=== PATIENT | female | born 1990 | race Hispanic/Latino ===

== ENCOUNTER 2016-10-02 20:45 | Outpatient (CLI) | payer OTHER ==
[2016-10-02] MEDS ORDERED: NORMAL SALINE 10 ML SYRINGE FLUSH IVP PRN (21:02)
[2016-10-02 21:09] VITALS: RESP 16; TEMP 98.2
--- NOTE | 2016-10-02 21:44 | PDOC(PROG) ---
Intake - - Reason for Visit/Chief Complaint: Contractions Admitted From: Home - Estimated Due Date: 10/14/16 Gestational Age in Weeks and Days: 38 Weeks and 3 Days : 3 Para: 2 Term Births: 2 Births: 0 Number of Abortions (Spont./Elective): 0 Living Children: 2 - Labs Group B Strep: Negative Maternal - Vital Signs Last Taken Vital Signs: Vital Signs - Last Taken Temperature 98.2 F 10/02/16 21:01 Pulse Rate 92 10/02/16 21:01 Respiratory Rate 16 10/02/16 21:01 Blood Pressure 127/70 10/02/16 21:01 Pulse Ox 98 10/02/16 21:01 - Uterine Activity Uterine Contraction Monitor Mode: External Contraction Frequency(minutes): 8-2 Contraction Duration (seconds): 50-60 Uterine Contraction Pattern: Irregular Uterine Tone Measurement Phase: Resting Uterine Contraction Intensity: Mild - Cervical Exam Cervical Dilation (cm): 1-2 Cervical Effacement Percentage: 40 Station: -3 Exam Performed By: Mario Benitez RN - Vaginal Discharge Vaginal Bleeding Amount: None Vaginal Discharge Amount: None Monitoring - Uterine Activity Uterine Contraction Monitor Mode: External Contraction Frequency(minutes): 8-2 Contraction Duration (seconds): 50-60 Uterine Contraction Pattern: Irregular Uterine Tone Measurement Phase: Resting Uterine Contraction Intensity: Mild Hammer Score - Hammer Score Cervical Dilation: 1-2 cm Cervical Effacement: 40-50% Station: -3 Cervical Consistency: Moderate Cervical Position: Posterior Hammer Score Total: 3 Results - Bedside Testing Bedside Urine Ketone: Negative Bedside Urine Leukocytes Esterase: Negative Bedside Urine Nitrite: Negative Bedside Urine Occult Blood: Negative Bedside Urine Protein: Negative Bedside Specific [place]: 1.025 Assessment and Plan - Patient Problems (1) Term Status: Acute Support Text: Labor check, Irregular contractions q8-10 minutes. Cervix 1-4/40/-3. Patient walked. No change in cervix, 2 contractions in 25 mins on repeat. Precautions. F /u Monday with Provider as previously scheduled.
== END 2016-10-02 23:39 | disposition home or self-care (01) ==
LOC: OBOP 20:45
PROVIDERS: ATTEND Student in an Organized Health Care Education/Training Program
DX: O47.1 False labor at or after 37 completed weeks of gestation (principal); Z3A.38 38 weeks gestation of pregnancy
CPT/HCPCS: 59025; 81003; 99211

== ENCOUNTER 2016-10-15 17:44 | Outpatient (CLI) | payer OTHER ==
[2016-10-15] MEDS ORDERED: NORMAL SALINE 10 ML SYRINGE FLUSH IVP PRN (17:55)
[2016-10-15 18:03] VITALS: RESP 20; TEMP 97.9
--- NOTE | 2016-10-18 09:34 | PDOC(PROG) ---
Intake - - Reason for Visit/Chief Complaint: Contractions Additional Reason(s) for Visit: decreased movement Admitted From: Home - Estimated Due Date: 10/14/16 Gestational Age in Weeks and Days: 40 Weeks and 4 Days : 3 Para: 2 Term Births: 2 Births: 0 Number of Abortions (Spont./Elective): 0 Living Children: 2 - Labs Blood Type and Rh: B+ Group B Strep: Negative Hepatitis B Surface Antigen: Absent HIV: Negative Rubella Status: Immune VDRL/RPR: Absent Maternal - Vital Signs Last Taken Vital Signs: Vital Signs - Last Taken Temperature 97.9 F 10/15/16 17:55 Pulse Rate 98 10/15/16 17:55 Respiratory Rate 20 10/15/16 17:55 Blood Pressure 114/73 10/15/16 17:55 Pulse Ox 97 10/15/16 17:55 - Uterine Activity Uterine Contraction Monitor Mode: External Contraction Frequency(minutes): irritability Contraction Duration (seconds): 70 Uterine Contraction Pattern: Absent Uterine Tone Measurement Phase: Resting Uterine Contraction Intensity: Mild - Cervical Exam Cervical Dilation (cm): 1 Cervical Effacement Percentage: 75 Station: -2 Exam Performed By: Shayla Saenz RN - Vaginal Discharge Vaginal Bleeding Amount: None Monitoring - Uterine Activity Uterine Contraction Monitor Mode: External Contraction Frequency(minutes): irritability Contraction Duration (seconds): 70 Uterine Contraction Pattern: Absent Uterine Tone Measurement Phase: Resting Uterine Contraction Intensity: Mild Results - Bedside Testing Bedside Urine Ketone: Negative Bedside Urine Leukocytes Esterase: Negative Bedside Urine Nitrite: Negative Bedside Urine Occult Blood: Negative Bedside Urine Protein: Negative Bedside Specific [place]: 1.005 Assessment and Plan - Assessment / Plan Additional Assessment/Plan Details: The patient was seen Monday in labor and delivery. At that time she was 40 and one sevenths weeks. The nurse contacted me to inform me the patient went to labor and delivery for decreased movement and possible labor. In labor and delivery, the patient felt the baby move often. The patient had 1 contraction in 40 minutes. No leak of fluid and no bleeding. The patient was a with 2 prior vaginal deliveries and had spontaneous labor with both. The patient's care was in [place], [place] with a physician there. The patient continues to have plans to deliver in [place], [place] but she went to [facility] for labor and delivery care since it was closer. In labor and delivery the patient had a reactive nonstress test and only 1 contraction in 40 minutes. The nurse informed me that the patient felt her baby moving well in labor and delivery. The patient's cervix was checked and her cervix was 1 cm and posterior. Baby was in cephalic presentation per nurse. The patient was sent home with precautions. The patient was asked to contact her OB physician's office on Monday which was 36 hours after the patient was seen in labor and delivery here at [facility] to schedule appointment for this week. Again, the patient was 40-1/7 weeks when the patient presented to our labor and delivery. The patient expressed understanding. The patient understood that she could present to our labor and delivery for emergent issues at any time. The patient also expressed understanding that she would schedule an appointment to see her OB provider this week. kick counts and labor precautions were discussed with patient and the patient again confirmed that she was feeling her baby move well in our labor and delivery.
== END 2016-10-15 18:53 | disposition home or self-care (01) ==
LOC: OBOP 17:44
PROVIDERS: ATTEND Obstetrics & Gynecology
DX: O47.1 False labor at or after 37 completed weeks of gestation (principal); O36.8130 Decreased fetal movements, third trimester, not applicable or unspecified; Z3A.40 40 weeks gestation of pregnancy
CPT/HCPCS: 59025; 81003; 99211

== ENCOUNTER 2016-10-20 01:15 | Inpatient (IN) | payer OTHER ==
[2016-10-20] MEDS ORDERED: NORMAL SALINE 10 ML SYRINGE FLUSH IVP PRN ×2 (01:38→04:29)
[2016-10-20] MEDS ORDERED: Phenylephrine Inj 50 MCG in Normal Saline Flush 0.5 ML IVP PRN (01:38)
[2016-10-20] MEDS ORDERED: Metoclopramide Inj 10 MG/2 ML VIAL IV PRN (01:38)
[2016-10-20] MEDS ORDERED: BUTORPHANOL TARTRATE 2 MG/1 ML VIAL IVP PRN (01:38)
[2016-10-20] MEDS ORDERED: OXYTOCIN 10 UNIT/1 ML IM PRN (01:38)
[2016-10-20] MEDS ORDERED: diphenhydrAMINE 50 MG/1 ML VIAL IVP PRN ×2 (01:38→04:29)
[2016-10-20] MEDS ORDERED: Naloxone Inj 0.01 MG in Normal Saline Flush 1 ML IVP PRN (01:38)
[2016-10-20] MEDS ORDERED: CefOXitin Inj 2 GM in Sodium Chloride 0.9% 100 ML IV PRN (01:38)
[2016-10-20] MEDS ORDERED: Nalbuphine Inj 20 MG/ML Ampule IVP PRN ×2 (01:38→04:29)
[2016-10-20] MEDS ORDERED: fentaNYL Inj 100 MCG/2 ML VIAL IV PRN (01:38)
[2016-10-20] MEDS ORDERED: Carboprost Inj 250 MCG/ML AMP IM PRN ×2 (01:38→04:29)
[2016-10-20] MEDS ORDERED: Lidocaine 1% 10 MG/ML - 20 ML VIAL SUBCUT PRN (01:38)
[2016-10-20] MEDS ORDERED: METHYLERGONOVINE MALEATE 0.2 MG/1 ML VIAL IM PRN ×2 (01:38→04:29)
[2016-10-20] MEDS ORDERED: MISOPROSTOL 200 MCG TABLET RECTAL PRN (01:38)
[2016-10-20] MEDS ORDERED: NALOXONE 0.4 MG/1 ML VIAL IVP PRN (01:38)
[2016-10-20] MEDS ORDERED: LIDOCAINE W/ SODIUM BICARB 0.5 ML SYR SUBD PRN (01:38)
[2016-10-20] MEDS ORDERED: ONDANSETRON 4 MG/2 ML VIAL IVP PRN ×2 (01:38→04:29)
[2016-10-20] MEDS ORDERED: Famotidine Inj 20 MG in Normal Saline Flush 10 ML IVP PRN ×4 (01:38)
[2016-10-20] MEDS ORDERED: ePHEDrine Inj 5 MG in Normal Saline Flush 1 ML IVP PRN (01:38)
[2016-10-20] MEDS ORDERED: TERBUTALINE SULFATE 1 MG/1 ML SDV SUBCUT PRN (01:38)
[2016-10-20] MEDS ORDERED: CITRIC ACID/SODIUM CITRATE 30 ML CUP PO PRN (01:38)
[2016-10-20] MEDS ORDERED: CALCIUM CARBONATE 500 MG (TUMS) CHEWABLE TABLET PO PRN ×2 (01:38→04:29)
[2016-10-20 01:57] LABS: HEMATOCRIT 34.1 % (37.0-47.0); HEMOGLOBIN 11.4 g/dL (12.0-16.0); MEAN CORPUSCULAR HEMOGLOBIN 27.9 PG (27-31); MEAN CORPUSCULAR HGB CONC 33.4 g/dL (33-37); MEAN PLATELET VOLUME 10.7 FL (7.4-12.2); RDW COEFFICIENT OF VARIATION 15.3 % (11.5-14.5); RED BLOOD COUNT 4.08 10^6/uL (4.20-5.40); WHITE BLOOD COUNT 8.7 10^3/uL (4.8-10.8)
[2016-10-20] MEDS: Lactated Ringers-OB Dept 1,000 ML PRIMARY IV SCH ×2 (02:09→02:52)
[2016-10-20] MEDS ORDERED: LIDOCAINE MPF 2% - 5 ML (20 MG/1 ML) ONE (02:48)
--- NOTE | 2016-10-20 03:39 | CRNA.PROCE ---
Central Neuraxis Block Placemt - - Safety Measures: Site Verified (. Oneil, came in at 4 cm ,now 6 cm. Has not had previous epidurals for labors. Has had no parenteral opiates. Platelets) - - Type of Block: Epidural Reason for Block: Analgesia Moniters Used During Block: SPO2, NIBP Skin Prep Used: Betadine (Times 3) Draped: Yes Spinal Needle Used: 18 Hustead 80 mm (BERTRAND with Saline. Epidural space times one. Catheter threaded with a transient Right leg parasthesia.) Local Anesthetic - Enter Amount Used in Comment Field: 1.5 % Xylocaine with Epinephrine 1:200,000 (mL): Yes (4ml) Number of Centimeters Catheter Threaded: 3.5 Bioclusive Dressing Applied: Yes (Skin prep under dressings) - - Additional Details: Since she's progressing rapidly , will dose via incremental doses not infusion. Test dose-233-4 ml of 1.5% Lido with epi 1:200k. 0245-5 ml of 2% Lido MPF 0312-5 ml of 2% Lido MPF- Shes completely comfortable-and complete and ready to push at 0335. Delivered at 0350. Jennifer Navarro MS, SWING DRIVER
[2016-10-20] MEDS: Oxytocin 20 Units + LR 1,000 ML IV SCH ×2 (03:52→05:09)
--- NOTE | 2016-10-20 04:18 | OB.DEL.SUM ---
Delivery Note Delivery Summary: of a viable male , Apgars 9/10, over a small 2 degree perineal laceration from OA position. At complete dilation, amniotomy was performed with return of moderate meconium. At delivery, the was vigorous and crying after the cord was clamped and cut and the was passed of to nursery staff. Repair was made with 3-0 Vicryl Rapide in the usual manner. Epidural anesthesia was provided during her short labor. The placenta delivered within minutes and was intact, with a three vessel cord. EBL 200 ml. There were no complications. Mother and baby tolerated delivery well.
[2016-10-20] MEDS ORDERED: Methylergonovine Tab 0.2 MG TAB PO PRN (04:29)
[2016-10-20] MEDS ORDERED: ACETAMINOPHEN 325 MG TABLET PO PRN (04:29)
[2016-10-20] MEDS ORDERED: OXYTOCIN 10 UNIT/1 ML IM ONE (04:29)
[2016-10-20] MEDS ORDERED: diphenhydrAMINE 25 MG CAPSULE PO PRN (04:29)
[2016-10-20] MEDS ORDERED: HYDROcodone-APAP 5 MG -325 MG TABLET PO PRN (04:29)
[2016-10-20] MEDS ORDERED: LANOLIN HPA 40 GM TUBE TOPICAL PRN (04:29)
[2016-10-20] MEDS ORDERED: DIPH,PERTUSS,TET(ADACEL) VAC/PF 0.5 ML (Tdap) IM SCH (04:29)
[2016-10-20] MEDS ORDERED: GLYCERIN/WITCH HAZEL 1 BOX TOPICAL PRN (04:29)
[2016-10-20] MEDS ORDERED: Ondansetron ODT Tab 4 MG TAB PO PRN (04:29)
[2016-10-20] MEDS ORDERED: BENZOCAINE/MENTHOL SPRAY 56 GM BOTTLE TOPICAL PRN (04:29)
[2016-10-20] MEDS ORDERED: MISOPROSTOL 200 MCG TABLET RECTAL ONE (04:29)
[2016-10-20] MEDS ORDERED: Oxytocin 20 Units + LR 1,000 ML IV SCH (04:29)
[2016-10-20 07:43] LABS: CANNABINOID SCREEN,URINE NEGATIVE (NEG); COCAINE SCREEN NEGATIVE (NEG); METHAMPHETAMINES SCREEN,URINE NEGATIVE (NEG); TRICYCLIC ANTIDEPRESSANT,URINE NEGATIVE (NEG); URINE SAMPLE TYPE CLEAN CATCH URINE; URINE SPECIFIC GRAVITY - MAN 1.007
[2016-10-20] MEDS: IBUPROFEN 800 MG TABLET PO PRN ×2 (09:47→19:06)
[2016-10-20] MEDS: DOCUSATE 100 MG CAPSULE PO SCH ×2 (09:48→21:05)
[2016-10-20] MEDS: PHENOL/MENTHOL 14.5 MG LOZENGE PO PRN (12:24)
[2016-10-20 18:04] VITALS: TEMP 99.3
[2016-10-21] MEDS: IBUPROFEN 800 MG TABLET PO PRN (05:05)
[2016-10-21] MEDS: PHENOL/MENTHOL 14.5 MG LOZENGE PO PRN (05:06)
[2016-10-21 05:10] VITALS: RESP 16
[2016-10-21 06:26] LABS: HEMOGLOBIN 10.4 g/dL (12.0-16.0); MEAN CORPUSCULAR HEMOGLOBIN 27.7 PG (27-31); MEAN CORPUSCULAR HGB CONC 32.5 g/dL (33-37); RDW COEFFICIENT OF VARIATION 15.8 % (11.5-14.5); RED BLOOD COUNT 3.76 10^6/uL (4.20-5.40)
[2016-10-21] MEDS ORDERED: Prenatal Multivitamin Tab 1 TAB TAB PO SCH (09:00)
--- NOTE | 2016-10-21 09:38 | DCSUMMARY ---
Hospitalization Summary Admit Date: 10/20/16 Discharge Date: 10/21/16 Primary Diagnosis:: Term , Delivered Delivery Type: Vaginal Hospital Course: Normal, uncomplicated labor, delivery, and course. / Postop Complications: None Complications: None Exam - Vitals Vital Signs: Vital Signs Temperature 99.3 F Temperature Source Oral Pulse Rate [Pulse Oximeter] 103 Pulse Rate 102 Respiratory Rate 16 Blood Pressure [Right Arm] 117/84 Blood Pressure 121/71 Pulse Ox 96 Oxygen Delivery Method Room Air Height 5 ft 4 in Weight 156 lb
== END 2016-10-21 10:45 | disposition home or self-care (01) | DRG 775 ==
LOC: OBOP 01:15 → OBIP 01:38
PROVIDERS: ADMIT Obstetrics & Gynecology; ATTEND Obstetrics & Gynecology
PROC: 10E0XZZ Delivery of Products of Conception, External Approach (ICD-10-PCS; principal; 2016-10-20)
PROC: 0KQM0ZZ Repair Perineum Muscle, Open Approach (ICD-10-PCS; 2016-10-20)
DX: O70.1 Second degree perineal laceration during delivery (principal); Z37.0 Single live birth; Z3A.40 40 weeks gestation of pregnancy
CPT/HCPCS: 36415; 80305; 85027; 87804; 87880; J2001; J2210; J7120